=== PATIENT | male | born 1975 | race Two or more races ===

== ENCOUNTER 2022-01-09 16:46 | Emergency (ER) | payer BC, OTHER ==
[~2022-01-09] VITALS: Ht 167.6 cm; Wt 77.6 kg
[2022-01-09] MEDS ORDERED: SODIUM CHLORIDE 0.9% 1,000 ML IVB ONE (17:15)
[2022-01-09 18:33] LABS: Basophils # (auto) 0.1 10 ^3/uL (0-0.2); Basophils % (auto) 0.8 % (0.0-2.0); Eosinophils # (auto) 0.2 10 ^3/uL (0-0.8); Eosinophils % (auto) 3.1 % (0.0-7.0); Hematocrit 48.9 % (41.0-53.0); Hemoglobin 16.7 g/dL (13.5-17.5); Lymphocytes # (auto) 2.3 10 ^3/uL (0.4-5.4); Mean Corpuscular Hemoglobin 32.8 pg (28.0-32.0); Mean Corpuscular Hgb Conc. 34.2 g/dL (32.0-36.0); Mean Corpuscular Volume 95.8 fL (80.0-100.0); Monocytes # (auto) 0.7 10 ^3/uL (0-1.3); Monocytes % (auto) 11.6 % (0.0-12.0); Neutrophils # (auto) 3.2 10 ^3/uL (1.6-8.6); Neutrophils % (auto) 49.5 % (37.0-80.0); Nucleated Red Blood Cells % 0.2 %; Red Blood Cells 5.11 10^6/uL (4.5-5.90); Red Cell Distribution Width 12.4 % (11.8-14.3); White Blood Cell 6.4 10^3/uL (4.4-10.8)
[2022-01-09 18:35] LABS: Albumin 3.8 g/dL (3.4-5.0); Anion Gap 10 (5-15); BUN/Creatinine Ratio 7.3; Blood Urea Nitrogen 8 mg/dL (7-18); Calcium 8.7 mg/dL (8.5-10.1); Carbon Dioxide 21 mmol/L (21-32); Chloride 111 mmol/L (98-107); GFR African American 93 mL/min; GFR Non-African American 77 mL/min; Glucose 86 mg/dL (74-106); Lipase 262 U/L (73-393); Potassium 3.7 mmol/L (3.5-5.1); Sodium 142 mmol/L (136-145)
[2022-01-09 18:38] LABS: Alanine Aminotransferase 38 U/L (16-61); Alkaline Phosphatase 84 U/L (45-117); Aspartate Aminotransferase 22 U/L (15-37); Bilirubin, Total 1.2 mg/dL (0.2-1.0); Total Protein 7.5 g/dL (6.4-8.2)
[2022-01-09] MEDS ORDERED: CIPR-173 PO (19:23)
[2022-01-09] MEDS ORDERED: CIPROFLOXACIN HCL 500 MG TAB PO ONE (19:30)
[2022-01-09] MEDS ORDERED: DIPHENOXYLATE W/ATROPINE 2.5 MG TAB PO ONE (19:30)
[2022-01-09 19:48] VITALS: BP 115/88
[2022-01-09 19:50] LABS: Urine Bacteria NONE SEEN /hpf (None Seen); Urine Blood TRACE /uL (Negative); Urine Mucus FEW (None Seen); Urine Specific Gravity 1.019 (1.001-1.035); Urine WBC 1 /hpf (0 - 3)
== END 2022-01-09 19:56 | disposition home or self-care (01) ==
LOC: ER 16:46 → EEVIPCON 16:46 → ER 19:56
DX: B34.9 Viral infection, unspecified (principal); E86.0 Dehydration; Z90.89 Acquired absence of other organs; Z20.822 Contact with and (suspected) exposure to COVID-19
CPT/HCPCS: 36415; 74176; 80053; 81001; 83690; 85025; 87426; 87804; 96360; 99284; J7030

== ENCOUNTER 2025-02-09 11:27 | Emergency (ER) | payer BC ==
[~2025-02-09] VITALS: Ht 167.6 cm; Wt 79.5 kg
[~2025-02-09 11:27] MED LIST: CIPR-173 PO
[2025-02-09 11:41] VITALS: BP 126/82; TEMP 98.7
[2025-02-09 11:42] VITALS: PULSE 113; RESP 20; O2SAT 95
--- NOTE | 2025-02-09 11:56 | ED.PDOC ---
HPI Allergic reaction HPI Comments 50 year old male presenting to the ED with chief complaint of allergic reaction. Patient reports that he has been experiencing a rash to his whole body with associated itchiness and blotches since 2 days ago. Patient relays that he is unsure what caused the allergic reaction, but a possibility is a new cologne he had tried prior to onset. Patient states he took Benadryl with no relief. Patient denies any SOB, throat swelling, dizziness, syncope, or chest pain. Chief Complaint: Allergic Reaction Time Seen by MD: 11:55 Reviewed Notes: Nurses Notes, Medications, Allergies Allergies: Coded Allergies: NO KNOWN ALLERGIES (Unverified , 01/09/22) Home Meds Active Scripts Ciprofloxacin Hcl (Cipro) 500 Mg Tab, 1 TAB PO BID, #14 TAB Prov:GABRIELLA GODWIN MD 01/09/22 Information Source: Patient, Relative (Child) Mode of Arrival: Ambulatory Severity: Moderate Rash: Moderate SOB: None Difficulty swallowing: None Pruritus: Moderate Timing: Days Duration: Since onset Prehospital treatment: None Location: Generalized Exposed to: Cosmetic Developed: Pruritus, Rash History of: None Modyifying Factors: Diphenhydramine Associated Sign and Symptoms: None Past Medical History PAST MEDICAL HISTORY: Denies Surgical History: Appendectomy Family History Family History: Reviewed,noncontributory to illness, Family hx of DM Social History Smoker: Non-Smoker Alcohol: Occasionally Drugs: Denies Drug Use Lives In: Home Constitutional: denies: chills, diaphoresis, fatigue, fever, malaise, sweats, weakness, others EENTM: denies: blurred vision, double vision, ear bleeding, ear discharge, ear drainage, ear pain, ear ringing, eye pain, eye redness, hearing loss, mouth pain, mouth swelling, nasal discharge, nose bleeding, nose congestion, nose pain, photophobia, tearing, throat pain, throat swelling, voice changes, others Respiratory: denies: cough, hemoptysis, orthopnea, SOB at rest, shortness of breath, SOB with excertion, stridor, wheezing, others Cardiovascular: denies: chest pain, dizzy spells, diaphoresis, Dyspnea on exertion, edema, irregular heart beat, left arm pain, lightheadedness, palpitations, PND, syncope, others Gastrointestinal: denies: abdomen distended, abdominal pain, blood streaked bowels, constipated, diarrhea, dysphagia, difficulty swallowing, hematemesis, melena, nausea, poor appetite, poor fluid intake, rectal bleeding, rectal pain, vomiting, others Genitourinary: denies: burning, dysuria, flank pain, frequency, hematuria, incontinence, penile discharge, penile sore, pain, testicle pain, testicle swelling, urgency, others Neurological: denies: dizziness, fainting, headache, left sided numbness, left sided weakness, numbness, paresthesia, pre-existing deficit, right sided numbness, right sided weakness, seizure, speech problems, tingling, tremors, weakness, others Musculoskeletal: denies: back pain, gout, joint pain, joint swelling, muscle pain, muscle stiffness, neck pain, others Integumetry: denies: bruises, change in color, change in hair/nails, dryness, laceration, lesions, lumps, rash, wounds, others Allergic/Immunocompromised: reports: Hives, Itching; denies: Difficulty Healing, Frequent Infections, others Hematologic/Lymphatic: denies: anemia, blood clots, easy bleeding, easy bruising, swollen glands, others Endocrine: denies: excessive hunger, excessive sweating, excessive thirst, excessive urination, flushing, intolerance to cold, intolerance to heat, unexplained weight gain, unexplained weight loss, others Psychiatric: denies: anxiety, bipolar disorder, depression, hopeless, panic disorder, schizophrenia, sleepless, suicidal, others All Other Systems: Reviewed and Negative Physical Exam General Appearance: Moderate Distress, Normal HEENT: Normal ENT Inspection, Pharynx Normal, TMs Normal Neck: Full Range of Motion, Non-Tender, Normal, Normal Inspection Respiratory: Chest Non-Tender, Lungs Clear, No Accessory Muscle Use, No Respiratory Distress, Normal Breath Sounds Cardiovascular: No Edema, No JVD, No Murmur, No Gallop, Normal Peripheral Pulses, Regular Rate/Rhythm Breast Exam: Deferred Gastrointestinal: No Organomegaly, Non Tender, No Pulsatile Mass, Normal Bowel Sounds, Soft Genitalia: Deferred Pelvic: Deferred Rectal: Deferred Extremities: No calf tenderness, Normal capillary refill, Normal inspection, Normal range of motion, Non-tender, No pedal edema Musculoskeletal : Apperance: Normal Neurologic: Alert, press tender II-XII nml as Tested, No Motor Deficits, Normal Affect, Normal Mood, No Sensory Deficits Cerebellar Function: Normal Reflexes: Normal Skin: Dry, Normal Color, Rash (Arms abdominal area back), Warm Peripheral Pulses: 3+ Radial (R), 3+ Radial (L) Lymphatic: No Adenopathy Was a procedure done? Was a procedure done?: No Differential diagnosis (all) Differential Diagnosis: Anaphylaxis, Drug Reaction, Urticaria X-Ray, Labs, Meds, VS Vital Signs Date Time Temp Pulse Resp B/P (MAP) Pulse Ox O2 Delivery O2 Flow Rate FiO2 02/09/25 11:42 113 20 95 Room Air* 0 21 02/09/25 11:41 98.7 113 20 126/82 (97) 95 98.7 02/09/25 11:28 98.3 120 14 128/93 96 98.3 Current Medications Medications (Trade) Dose Ordered Sig/Kin Route Start Time Stop Time Status Last Admin Pantoprazole Sodium (Protonix) 40 mg ONCE ONCE IV 02/09/25 11:45 02/09/25 11:46 DC 02/09/25 11:59 Methylprednisolone Sodium Succinate (Solu Medrol) 125 mg ONCE ONCE IV 02/09/25 11:45 02/09/25 11:46 DC 02/09/25 11:59 Patient alert. Has rash all over his body mainly the arms abdominal area back legs. Vitals stable. Answering questions. No sign of any respiratory compromise. Saturation pristine on room air. Respiratory rate within normal limits. No leg swelling. He is comfortable. Was given steroid. Was given prescription of prednisone. Was told to follow up with his primary care physician. Was told to come back if there is any problem. Time of 1ST Reevaluation: 12:56 Reevaluation 1ST: Improved Patient Education/Counseling: Diagnosis, Treatment Family Education/Counseling: Diagnosis, Treatment SEPSIS Sepsis Screen Date sepsis recognized/suspect: Feb 09, 2025 Time Sepsis recognized/suspect: 1128 Recent Procedure: No On Antibiotic Therapy: No Respiratory Rate >20: No Heart Rate >90: Yes Temp<36 C (96.8 F) or >38.3 C: No SBP <90 or MAP <65 mmHG: No New Acute Mental Status Change: No Is the patient on CPAP, BIPAP,: No Vital Signs Date Time Temp Pulse Resp B/P (MAP) Pulse Ox O2 Delivery O2 Flow Rate FiO2 02/09/25 11:42 113 20 95 Room Air* 0 21 02/09/25 11:41 98.7 113 20 126/82 (97) 95 98.7 02/09/25 11:28 98.3 120 14 128/93 96 98.3 Medications Medications Dose Ordered Sig/Kin Route Start Time Stop Time Status Last Admin Dose Admin Methylprednisolone Sodium Succinate 125 mg ONCE ONCE IV 02/09/25 11:45 02/09/25 11:46 DC 02/09/25 11:59 Pantoprazole Sodium 40 mg ONCE ONCE IV 02/09/25 11:45 02/09/25 11:46 DC 02/09/25 11:59 Departure 1 Departure Time of Disposition: 12:10 Impression: Primary Impression: Allergic reaction Qualified Codes: T78.40XA - Allergy, unspecified, initial encounter Disposition: HOME / SELF CARE / HOMELESS Condition: Good e-Prescriptions Prednisone (Prednisone) 20 Mg Tab 20 MG PO DAILY for 5 Days, #5 MG Prov: ÁNGEL HARTMANN MD 02/09/25 Discharged With: Self Critical Care Note Critical Care Time?: No Stability Stability form required: No Heart Score Heart Score: Heart Score Response (Comments) Value History N/A 0 EKG N/A 0 Age N/A 0 Risk Factors N/A 0 Troponin N/A 0 Total 0 I personally scribed for ÁNGEL HARTMANN MD ([email or web address]) on 02/09/25 at 11:56. Electronically submitted by Bandar Ty ([email or web address]). ÁNGEL HARTMANN MD Feb 09, 2025 11:56
[2025-02-09] MEDS: PANTOPRAZOLE 40 MG/10 ML VIAL INJ IV ONE ×2 (11:59→12:12)
[2025-02-09] MEDS: methylPREDNISolone SOD SUCC 125 MG/2 ML VL IV ONE (11:59)
[2025-02-09] MEDS: methylPREDNISolone SOD SUCC 125 MG/2 ML VL ONE (12:12)
[2025-02-09] MEDS ORDERED: PRED20TA2 PO (12:23)
== END 2025-02-09 12:49 | disposition home or self-care (01) ==
LOC: ER 11:27
DX: T78.49XA Other allergy, initial encounter (principal); Z90.49 Acquired absence of other specified parts of digestive tract; X58.XXXA Exposure to other specified factors, initial encounter
CPT/HCPCS: 96374; 96375; 99284; J2470; J2919